=== PATIENT | male | born 1985 | race Caucasian/White ===

== ENCOUNTER 2017-03-10 21:02 | Emergency (ER) | payer MEDICAID ==
[~2017-03-10] VITALS: Ht 175.3 cm; Wt 94.3 kg
[~2017-03-10 21:02] MED LIST: CELEXA; LITHIUM
[2017-03-10 21:18] VITALS: BP 141/87
[2017-03-10 21:56] LABS: Urine Bilirubin Negative (Negative); Urine Blood Negative /uL (Negative); Urine Color Yellow (Yellow); Urine Glucose Normal (Normal); Urine Ketone Negative (Negative); Urine Nitrite Negative (Negative); Urine RBC <1 /hpf (0 - 3); Urine Urobilinogen Normal (Negative)
[2017-03-10 22:09] LABS: B-Type Natriuretic Peptide 0.26 pg/mL (0-100)
[2017-03-10 22:10] LABS: Albumin 4.4 g/dL (3.4-5.0); BUN/Creatinine Ratio 17.1; Bilirubin, Total 0.6 mg/dL (0.2-1.0); Potassium 3.7 mmol/L (3.5-5.1); Total Protein 7.8 g/dL (6.4-8.2)
[2017-03-10 22:25] LABS: Basophils # (auto) 0 uL; Basophils % (auto) 0.3 % (0.0-2.0); CONDITION Y; Eosinophils # (auto) 0.4 uL; Eosinophils % (auto) 4.2 % (0.0-7.0); Hematocrit 42.5 % (41.0-53.0); Hemoglobin 14.8 g/dL (13.5-17.5); Lymphocytes # (auto) 1.4 uL; Lymphocytes % (auto) 13.9 % (10.0-50.0); Mean Corpuscular Hemoglobin 30.5 pg (28.0-32.0); Mean Corpuscular Hgb Conc. 34.8 g/dL (32.0-36.0); Mean Corpuscular Volume 87.5 fL (80.0-100.0); Mean Platelet Volume 8.3 fL (7.4-10.4); Monocytes % (auto) 10.2 % (0.0-12.0); Neutrophils # (auto) 7.3 uL; Neutrophils % (auto) 71.4 % (37.0-80.0); Platelet Count (auto) 278 10^3/uL (140-450); Red Cell Distribution Width 12.7 % (11.6-16.0); White Blood Cell 10.2 10^3/uL (4.4-10.8)
[2017-03-10 22:29] LABS: Temperature: 24.3 C (20.0-25.0)
== END 2017-03-11 01:00 | disposition left against medical advice (07) ==
LOC: ER 21:04
DX: M25.512 Pain in left shoulder (principal); R07.89 Other chest pain; Z53.21 Procedure and treatment not carried out due to patient leaving prior to being seen by health care provider
CPT/HCPCS: 36415; 71010; 80053; 80307; 81001; 83880; 84484; 85025